=== PATIENT | female | born 1995 | race Caucasian/White ===

== ENCOUNTER 2017-07-20 10:35 | Emergency (ER) | payer BC ==
[~2017-07-20] VITALS: Ht 157.5 cm; Wt 50.8 kg
[2017-07-20 10:40] VITALS: TEMP 36.7; Ht 157.5 cm; Wt 50.8 kg
[2017-07-20] MEDS ORDERED: SERT100T PO (11:13)
[2017-07-20] MEDS ORDERED: ACETAMINOPHEN IV 100 ML IV ONE (11:30)
[2017-07-20 11:41] LABS: BASO % 0.2 %; BASO ABS # 0.02 K/uL (0-0.2); EOS % 1.5 %; EOS ABS # 0.14 K/uL (0-0.5); HEMATOCRIT 39.4 % (37-47); IG# 0.02 K/uL (0.00-0.02); LYMPH ABS # 2.28 K/uL (1.2-3.4); MEAN CORPUSCULAR HEMOGLOBIN 30.6 pg (25-34); MEAN CORPUSCULAR HGB CONC 35.5 g/dl (32-36); MEAN PLATELET VOLUME 9.9 fL (7.4-10.4); MONO ABS # 0.36 K/uL (0.11-0.59); NEUT % 69.1 %; NEUT ABS # 6.29 K/uL (1.4-6.5); PLATELET COUNT 289 K/uL (130-400); RED CELL DISTRIBUTION WIDTH CV 12.3 % (11.5-14.5); WHITE BLOOD COUNT 9.11 K/uL (4.8-10.8)
[2017-07-20 11:50] LABS: ALT/SGPT 18 U/L (12-78); BLOOD UREA NITROGEN 11 mg/dl (7-18); CARBON DIOXIDE 26 mmol/L (21-32); CREATININE 0.57 mg/dl (0.60-1.20); GLUCOSE 82 mg/dl (70-99); POTASSIUM 3.9 mmol/L (3.5-5.1); SODIUM 138 mmol/L (136-145)
[2017-07-20 11:53] LABS: ALKALINE PHOSPHATASE 149 U/L (45-117); AST/SGOT 18 U/L (15-37); TOTAL PROTEIN 7.3 gm/dl (6.4-8.2)
--- NOTE | 2017-07-20 11:56 | DIAGNOSTIC IMAGING REPORT ---
HEAD WITHOUT CONTRAST (CT) CT DOSE: HISTORY: Trauma. Mental status change. fall to floor then seizure TECHNIQUE: Multiaxial CT images of the head were performed without the use of intravenous contrast. A dose lowering technique was utilized adhering to the principles of ALARA. Comparison: None. Findings: The paranasal sinuses and mastoid air cells are clear. The calvarium and skull base are intact. The ventricles and sulci are within normal limits. There is no mass, hematoma, midline shift, or acute infarct. Impression: No acute intracranial abnormality. The above report was generated using voice recognition software. It may contain grammatical, syntax or spelling errors. Electronically signed by: Sánchez Traore M.D. 07/20/2017 11:55 AM Dictated Date/Time: 07/20/2017 11:53 AM
--- NOTE | 2017-07-20 12:10 | DIAGNOSTIC IMAGING REPORT ---
CT OF THE CERVICAL SPINE WITHOUT CONTRAST CLINICAL HISTORY: fall, seizure, neck pain COMPARISON STUDY: No previous studies for comparison. TECHNIQUE: Helical axial images of the cervical spine were obtained without IV contrast. Sagittal and coronal reconstructions were viewed. A dose lowering technique was utilized adhering to the principles of ALARA. FINDINGS: Alignment of the cervical spine is anatomic. Craniocervical junction is intact. There is no acute cervical spine fracture. There is no prevertebral edema. No pneumothorax is shown within visualized portions of the lung apices. IMPRESSION: No acute cervical spine fracture or subluxation. Electronically signed by: Kosta Mckeon M.D. 07/20/2017 12:09 PM Dictated Date/Time: 07/20/2017 11:54 AM
[2017-07-20 14:37] VITALS: BP 108/59; PULSE 62; O2SAT 97
[2017-07-20] MEDS ORDERED: LEVE500T13 PO (14:43)
[2017-07-20] MEDS ORDERED: LEVETIRACETAM 250 MG TAB PO ONE (14:45)
--- NOTE | 2017-07-20 21:00 | EMERGENCY ROOM VISIT NOTE ---
ED Visit Note First contact with patient: 11:07 Chief Complaint: Seizure. History of Present Illness: Ms. Valdez is a 22-year-old white female who is brought into the ED via ambulance for seizures. Historically patient denies any previous significant medical history. She does report that she is 6 months and had no complications with her . Patient and reports that she was walking into the kitchen to get herself a drink of water. Patient's grandmother observed her fall. Immediately after the fall grandmother reports she was talking normally. Patient's was called down from upstairs and when he arrived he noted that she was staring blankly out in the space and was having twitching movements of the upper and lower extremities. He also reports her head was violently shaking instructed ground multiple times. He reports this lasted for approximately 5 minutes. He reports she appeared to develop a chill and had one final shake and stopped all activity and was awake and talking normally. EMS was activated and she was brought in the ED for further evaluation and care. Currently patient is complaining of occipital headache. She describes this as an achy sensation. She rates her discomfort 3/10. Her pain is nonradiating. She has not identified any aggravating or alleviating factors related to the pain. Associated with her pain she also reports she is having neck discomfort. She places her neck discomfort and the C2 and C5 areas. Again she describes these as an achy sensation and rates her discomfort 3/10. She has not had any medications for pain prior to arrival at the hospital. Currently patient is amnestic to the events. Patient denies dizziness, lightheadedness, visual changes, hearing changes, difficulty speaking, difficulty swallowing, difficulty ambulating/coordinating body movements, chest pain, shortness of breath, abdominal pain, nausea, vomiting, incontinence, upper and lower extremity weakness/numbness/tingling. Review of Systems: As noted above in history of present illness. All body systems were reviewed and found to be negative as noted above. Past Medical History: As noted above, status post bilateral myringotomy. Current Medications: Zoloft, vitamins. Allergies to Medications: Cephalosporins. Social History: Patient is currently employed; she feels safe in her home environment; she denies tobacco and alcohol use. Physical Examination: Vital Signs: Date Time Temp Pulse Resp B/P (MAP) Pulse Ox O2 Delivery O2 Flow Rate FiO2 12/28/17 14:37 62 18 108/59 97 Room Air 07/20/17 13:44 70 07/20/17 12:37 67 16 104/55 98 Room Air 07/20/17 10:46 58 07/20/17 10:40 36.7 54 16 105/59 98 Room Air GENERAL: 22-year-old female in mild distress due to pain, nontoxic-appearing, afebrile and hemodynamically stable. NEUROLOGICAL: Awake, alert and oriented to person, place and time. Answering questions appropriately and following commands. Good hand eye coordination. Cranial nerves II through XII grossly intact. Able to spell and count backwards. Patient amnestic to event. Moves all extremities well on command and with purpose. Glascow coma score 14 SKIN: Warm, dry and pink. No soft tissue trauma noted. HEENT: Atraumatic and normocephalic. Skull: No bony deformity, bony tenderness depressions, swelling or ecchymosis. No raccoon's eyes or arora signs. No drainage from the ears of the nostril; no hemotympanum. Face: No bony tenderness, swelling or ecchymosis. PERRLA. EOMI without nystagmus. Sclera white and conjunctiva pink. No malocclusion. No intraoral trauma. Airway is patent. Speech is normal and clear. Trachea midline. No jugular venous distention. No carotid bruits. BACK: Mild tenderness over the cervical spine in the area C2 and C5. I do not appreciate any bony deformity, bony crepitus, step-offs, swelling or ecchymosis. After her cervical spine was cleared by CT full range of motion was appreciated. No tenderness over the thoracic or lumbar spine. No CVA tenderness. THORAX: Lungs sounds are clear to auscultation and equal bilaterally with symmetrical chest wall. No wheezing, rales or rhonchi. No crepitus, tenderness , subcutaneous air or deformities noted. HEART: Regular rate and rhythm. No gallops, rubs or murmurs are appreciated. ABDOMEN: Flat, soft and nontender. Positive bowel sounds in all quadrants. No guarding, rigidity or organomegaly. EXTREMITIES: Moves all extremities well on command and with purpose. All distal neurovascular statuses are intact and equal bilaterally. ED Course: Patient is assessed as noted above. Patient's medication list was reviewed. Laboratory Testing: Test 07/20/17 10:55 07/20/17 12:41 Range/Units White Blood Count 9.11 4.8-10.8 K/uL Red Blood Count 4.58 4.2-5.4 M/uL Hemoglobin 14.0 12.0-16.0 g/dL Hematocrit 39.4 37-47 % Mean Corpuscular Volume 86.0 80-100 fL Mean Corpuscular Hemoglobin 30.6 25-34 pg Mean Corpuscular Hemoglobin Concent 35.5 32-36 g/dl Platelet Count 289 130-400 K/uL Mean Platelet Volume 9.9 7.4-10.4 fL Neutrophils (%) (Auto) 69.1 % Lymphocytes (%) (Auto) 25.0 % Monocytes (%) (Auto) 4.0 % Eosinophils (%) (Auto) 1.5 % Basophils (%) (Auto) 0.2 % Neutrophils # (Auto) 6.29 1.4-6.5 K/uL Lymphocytes # (Auto) 2.28 1.2-3.4 K/uL Monocytes # (Auto) 0.36 0.11-0.59 K/uL Eosinophils # (Auto) 0.14 0-0.5 K/uL Basophils # (Auto) 0.02 0-0.2 K/uL RDW Standard Deviation 38.0 36.4-46.3 fL RDW Coefficient of Variation 12.3 11.5-14.5 % Immature Granulocyte % (Auto) 0.2 % Immature Granulocyte # (Auto) 0.02 0.00-0.02 K/uL Sodium Level 138 136-145 mmol/L Potassium Level 3.9 3.5-5.1 mmol/L Chloride Level 105 98-107 mmol/L Carbon Dioxide Level 26 21-32 mmol/L Anion Gap 7.0 3-11 mmol/L Blood Urea Nitrogen 11 7-18 mg/dl Creatinine 0.57 0.60-1.20 mg/dl Est Creatinine Clear Calc Drug Dose 122.5 ml/min Estimated GFR () > 150.0 Estimated GFR (Non- 131.6 BUN/Creatinine Ratio 18.9 10-20 Random Glucose 82 70-99 mg/dl Calcium Level 9.0 8.5-10.1 mg/dl Total Bilirubin 0.4 0.2-1 mg/dl Direct Bilirubin < 0.1 0-0.2 mg/dl Aspartate Amino Transf (AST/SGOT) 18 15-37 U/L Alanine Aminotransferase (ALT/SGPT) 18 12-78 U/L Alkaline Phosphatase 149 45-117 U/L Total Protein 7.3 6.4-8.2 gm/dl Albumin 4.0 3.4-5.0 gm/dl Human Chorionic Gonadotropin, Qual NEG NEG Urine Color YELLOW Urine Appearance CLEAR CLEAR Urine pH 7.0 4.5-7.5 Urine Specific [place] 1.022 1.000-1.030 Urine Protein NEG NEG Urine Glucose (UA) NEG NEG Urine Ketones NEG NEG Urine Occult Blood NEG NEG Urine Nitrite NEG NEG Urine Bilirubin NEG NEG Urine Urobilinogen NEG NEG Urine Leukocyte Esterase NEG NEG Urine Opiates Screen NEG NEG Urine Methadone, Qualitative NEG NEG Urine Barbiturates NEG NEG Urine Phencyclidine (PCP) Level NEG NEG Ur Amphetamine/Methamphetamine NEG NEG MDMA (Ecstasy) Screen NEG NEG Urine Benzodiazepines Screen NEG NEG Urine Cocaine Metabolite NEG NEG Urine Marijuana (THC) NEG NEG Head CT: Was reviewed by myself and read by the radiologist showing no acute intracranial abnormalities or skull fractures. Cervical Spine CT: Was reviewed by myself and read by the radiologist showing no acute cervical spine fractures or subluxations. Patient was hydrated with normal saline and was ordered 1 g of acetaminophen IV ; patient refused acetaminophen reporting resolution of her headache. Patient was reassessed multiple times during her stay in the emergency department. Patient's case was reviewed with Dr. Monzon; we agreed on diagnostic approach , treatment, disposition and plan. Patient's case was consulted with Dr. Quintanilla, neurologist; he recommended starting the patient on 250 mg of Keppra 2 times a day and follow-up with neurology. Patient was given 250 mg of Keppra by mouth. Patient and were educated about today's findings and instructed on her treatment plan; she verbalizes understanding and agreement with this plan. Clinical Impression: New-onset seizure. Decision-Making: Initially my differential diagnosis I considered intracranial bleed, skull fracture, eclampsia, electrolyte abnormality and other causes. Disposition: Patient discharged home in stable condition; prior to departure she was reassessed and subjectively reported that she was pain and symptom-free. Plan: Patient was encouraged to continue current medication as prescribed. Patient was encouraged to use 250 mg of Keppra 2 times a day until followed up with neurology per Patient was encouraged to contact her PCP and request follow-up care and treatment and referral to neurology. Patient was encouraged return ED for additional seizures, fevers, any abnormal neurological symptoms or any new/concerning symptoms.
== END 2017-07-20 14:55 | disposition home or self-care (01) ==
LOC: C.EDC 10:38
DX: R56.9 Unspecified convulsions (principal); Z79.899 Other long term (current) drug therapy; Z98.51 Tubal ligation status; Z88.8 Allergy status to other drugs, medicaments and biological substances